=== PATIENT | male | born 1990 | race Caucasian/White ===

== ENCOUNTER 2021-01-23 11:29 | Outpatient (REF) | payer OTHER, SELFPAY | END 2021-01-23 11:30 | disposition home or self-care (01) | LOC: HO.LAB 11:29 | PROVIDERS: Visit Provider Internal Medicine | DX: Z20.822 Contact with and (suspected) exposure to COVID-19 (principal) | CPT/HCPCS: C9803; U0003; U0005 ==

== ENCOUNTER 2022-09-25 14:52 | Outpatient (AMB) | payer OTHER, SELFPAY ==
--- NOTE | 2022-09-25 14:59 | A.OFFPC_ITS ---
Vital Signs 09/25/22 15:00 Height 5 ft 8.5 in Weight 259 lb 2 oz BMI 38.8 BP 140/84 H Blood Pressure Location Lt brachial Position Standing Pulse 90 Pulse Source Pulse Oximeter Pulse Oximetry (%) 99 Oxygen Delivery Method Room Air Intake Visit Reasons: New patient-requesting physical Intake Note: Patient is here as a new pain with pain in left foot, rolled his ankle 2 weeks ago. Allergies sulfamethoxazole [From Bactrim] Adverse Reaction (Mild, Verified 09/25/22 15:04) Diarrhea trimethoprim [From Bactrim] Adverse Reaction (Mild, Verified 09/25/22 15:04) Diarrhea Tobacco use date assessed: 09/25/22 Dental Screening Dental Screen Date: 09/25/22 Did you have a dental visit in the last 12 months?: Yes Did you have a dental problem in the last 6 months where you did not have access to dental care?: No Was dental information given to patient?: Patient has dentist HPI New patient-requesting physical HPI Details New patient Prior PCP:?[facility]. Last office visit/CPE: 5-6 years ago. Acute issue(s): Elevated BP -BP today 140/84. He is not on any meds for his blood pressure. -Has been elevated before in the past. L foot/ankle pain -Rolled his ankle x2 weeks ago. PMHx: Elevated BP, GERD SurgHx: Ingrown nail w/ local. FHx: Father: Osteoporosis GF: DM, Lung CA. Mom: Depression. SocHx: Smoke 1.5 yrs at age 20. EtOH: Weekends 6-pack to 12-pack PFSH Medical History (Updated 09/25/22 @ 15:41 by Issac Penn) Hypertension Surgical History (Updated 09/25/22 @ 15:08 by Nita Boles CMA) No pertinent past surgical history Family History (Updated 09/25/22 @ 15:10 by Nita Boles CMA) Paternal Grandfather High blood pressure Diabetes Lung cancer Maternal Grandmother High blood pressure Heart attack Advanced dementia Social History (Updated 09/25/22 @ 15:12 by Nita Boles CMA) Household Members: Family Housing: House Patient Tobacco Use Status: Former Tobacco user e-Cigarette/Vaping Use: Never Used Special laila needs: No service: No Current occupational status: employed Current occupation: [employer] Cognitive needs: No Hearing needs: No Vision needs: No Questionnaire PHQ-9 Over the last 2 weeks, how often have you been bothered by any of the following problems? 1. Little interest or pleasure in doing things: not at all 2. Feeling down, depressed, or hopeless: not at all 3. Trouble falling or staying asleep, or sleeping too much: not at all 4. Feeling tired or having little energy: not at all 5. Poor appetite or overeating: not at all 6. Feeling bad about yourself - or that you are a failure or have let yourself or your family down: not at all 7. Trouble concentrating on things, such as reading the newspaper or watching television: not at all 8. Moving or speaking so slowly that other people could have noticed. Or the opposite - being so fidgety or restless that you have been moving around a lot more than usual: not at all 9. Thoughts that you would be better off or of hurting yourself in some way: not at all Total score: 0 Source: Developed by Drs. Edward Dunn, Bina Alcazar, Puma Condon and colleagues, with an educational arcadio from [employer]. Thrive Questionnaire I am a: Patient What is your living situation today?: I have a steady place to live Within the past 12 months, did the food you bought not last and you didn't have the money to get more?: Never true Within the past 12 months, did you worry whether your food would run out before you got money to buy more?: Never true Do you have trouble paying for medicines?: No Do you have trouble getting transportation to medical appointments?: No Do you have trouble paying your heating and electricity bill?: No Do you have trouble taking care of your child, family member or friend?: No Do you have trouble with day-to-day activities such as bathing, preparing meals, shopping, managing finances, etc.?: No Are you currently unemployed and looking for a job?: No Are you interested in more education?: No AUDIT C Alcohol Use Questionnaire (AUDIT-C) 1. How often do you have a drink containing alcohol?: 2-4 times a month 2. How many drinks containing alcohol do you have on a typical day when you are drinking?: 10 or more 3. How often do you have six or more drinks on one occasion?: Monthly Total Score: 8 MICHAEL-7 AMB Questionnaire MICHAEL-7 Date MICHAEL - 7 assessed: 09/25/22 Feeling nervous, anxious, or on edge: 0 = Not at all Not being able to stop or control worryin = Not at all Worrying too much about different things: 0 = Not at all Trouble relaxin = Not at all Being so restless that it is hard to sit still: 0 = Not at all Becoming easily annoyed or irritable: 0 = Not at all Feeling afraid as if something awful might happen: 0 = Not at all Total MICHAEL-7 score (0-4 normal; 5-9 mild; 10-14 moderate; 15-21 severe): 0 Source: Developed by Drs. Edward Dunn, Bina Alcazar, Puma Condon and colleagues, with an educational arcadio from [employer]. Review of Systems Const Denies chills, Denies fatigue, Denies fever(s), Denies headache(s) and Denies weakness ENT Denies dizziness and Denies headache(s) Card Denies chest pain, Denies lightheadedness, Denies dyspnea and Denies other (Palpitations) Resp Denies cough, Denies dyspnea, Denies wheezing and Denies other ( shortness of breath) Musc Denies numbness and Denies tingling Neuro Denies dizziness, Denies headache(s), Denies numbness, Denies tingling, Denies paresthesias and Denies weakness Psych Denies anxiety and Denies depression Endo Denies fatigue Aller/Immun Denies wheezing Physical exam (Primary Care) Vital Signs: Last Vital Signs Pulse 90 09/25/22 15:00 BP 140/84 H 09/25/22 15:00 Pulse Ox 99 09/25/22 15:00 Oxygen Delivery Method Room Air 09/25/22 15:00 BMI result Body Mass Index 38.8 Tobacco/Smoking Status: Tobacco use Status Tobacco use date assessed 09/25/22 09/25/22 15:13 Patient Tobacco Use Status Former Tobacco user 09/25/22 15:13 e-Cigarette/Vaping Use Never Used 09/25/22 15:13 PHQ-9: PHQ-9 Score PHQ-9: Total score 0 09/25/22 15:19 Const General: no acute distress and well developed Nutritional Appearance: well nourished Orientation/consciousness: patient oriented x3 HENMT Head: Yes normocephalic and Yes atraumatic Eyes General: appearance normal, both eyes and all related structures Pupils: Equal, round and reactive pupils present EOM: EOMs intact bilaterally Resp Effort & Inspection: normal respiratory effort Auscultation: clear to auscultation bilaterally Cardio Rate: regular rate Rhythm: regular rhythm Heart sounds: S1 normal heart sound present, S2 normal heart sound present, no gallops, no murmurs and no rubs Neuro General: patient oriented x3 and gait normal Cranial nerves: Yes Equal, round and reactive pupils present Extrem Other: Tenderness over L 5th metatarsal head Psych Affect: normal affect Assessment and Plan Assessment & Plan (1) Hypertension: Code(s): I10 - Essential (primary) hypertension Plan: Blood pressure is high and he has had elevated blood pressures in the past Start lisinopril Will follow-up at next visit to recheck blood pressures Encouraged diet exercise and weight loss (2) Left foot pain: Code(s): M79.672 - Pain in left foot Plan: Patient rolled foot and has pain at left 5th metatarsal head Likely sprain at with ongoing strain as he has been climbing ladders for work Will check an x-ray to rule out fracture at 5th metatarsal head Recommend relative rest and NSAIDs Recommend ice and elevation If not improving will consider physical therapy or Podiatry (3) GERD (gastroesophageal reflux disease): Code(s): K21.9 - Gastro-esophageal reflux disease without esophagitis Plan: History of GERD which he is able to control by controlling trigger foods Continue trigger food avoidance Can pre treat with OTC medications when needed He will let me know if this worsens (4) Laboratory exam ordered as part of routine general medical examination: Code(s): Z00.00 - Encounter for general adult medical examination without abnormal fin dings Plan: Check labs Orders: Orders Comprehensive [place]. Panel Fast Today Z00.00 - Encounter for general adult medical examination without abnormal findings Lipid Panel Today Z00.00 - Encounter for general adult medical examination without abnormal findings TSH reflex Free T4 Today Z00.00 - Encounter for general adult medical examination without abnormal findings Microalbumin, Random (w Creat) Today I10 - Essential (primary) hypertension Hepatitis B,C Profile Today Z11.3 - Encounter for screening for infections with a predominantly sexual mode of transmission HIV Ab/Ag Today Z11.3 - Encounter for screening for infections with a predominantly sexual mode of transmission Syphilis Screen Today Z11.3 - Encounter for screening for infections with a predominantly sexual mode of transmission UA and rflx microscopic Today Z00.00 - Encounter for general adult medical examination without abnormal findings CT NG by PCR Today Z11.3 - Encounter for screening for infections with a predominantly sexual mode of transmission XR foot LT min 3V Today M79.672 - Pain in left foot Medications: New lisinopril 10 mg PO DAILY 30 days 30 tabs 1RF meloxicam 15 mg PO DAILY 30 days 30 tabs 2RF Coding Level of Care Code New Pt Level 3 (13999) Diagnoses Hypertension I10 Left foot pain M79.672 GERD (gastroesophageal reflux disease) K21.9 Laboratory exam ordered as part of routine general medical examination Z00.00
[2022-09-25 15:00] VITALS: BP 140/84; PULSE 90; O2SAT 99; BMI 38.8
== END 2022-09-25 15:53 | disposition home or self-care (01) ==
PROVIDERS: Visit Provider Family Medicine
DX: I10 Essential (primary) hypertension (principal); M79.672 Pain in left foot; K21.9 Gastro-esophageal reflux disease without esophagitis; Z00.00 Encounter for general adult medical examination without abnormal findings
CPT/HCPCS: 99203

== ENCOUNTER 2022-09-26 15:42 | Outpatient (REF) | payer OTHER, SELFPAY ==
--- NOTE | ~2022-09-26 | XR_ITS ---
EXAMINATION: XR FOOT, LEFT CLINICAL INFORMATION: Pain. COMPARISON: None available. TECHNIQUE: AP, lateral, and oblique views of the left foot. FINDINGS: Bony alignment and mineralization are normal. No fracture, dislocation or left ankle joint effusion is seen. Boehler's angle is normal. There is a small posterior calcaneal spur. No focal soft tissue swelling, gas or foreign body is seen. XR/XR foot LT min 3V IMPRESSION: 1. No fracture, dislocation or left ankle joint effusion is seen. 2. There is a small posterior calcaneal spur
== END 2022-09-26 15:43 | disposition home or self-care (01) ==
LOC: HO.XRAY 15:42
PROVIDERS: PCP Family Medicine; Visit Provider Family Medicine
DX: M79.672 Pain in left foot (principal)
CPT/HCPCS: 73630

== ENCOUNTER 2022-12-15 08:40 | Outpatient (REF) | payer OTHER, SELFPAY ==
[2022-12-15 09:38] LABS: Alanine Aminotransferase 51 U/L (0-40); Albumin Level 4.5 g/dL (3.5-5.0); Alkaline Phosphatase 77 U/L (39-117); Anion Gap 13 (12-20); Aspartate Amino Transferase 22 U/L (5-37); Bilirubin Total 0.5 mg/dL (0.0-1.0); Blood Urea Nitrogen 14 mg/dL (9-16); Carbon Dioxide 28 mmol/L (22-29); Chloride 105 mmol/L (96-108); Cholesterol 237 mg/dL (<200); Estimated Glomerular Filt Rate > 60; Glucose Fasting 103 mg/dL (60-99); HDL Cholesterol 41 mg/dL (>40); LDL Cholesterol Calculated 164 mg/dL (<100); Potassium 4.6 mmol/L (3.3-5.1); Sodium 141 mmol/L (135-145); Total Protein 7.6 g/dL (6.5-8.0); Triglycerides 162 mg/dL (<150)
[2022-12-15 09:56] LABS: HBS Num1 8.01 mIU/mL (0-7.99); HBc Num1 0.07 S/CO (0.00-0.79); HBsAGNum1 0.45 S/CO (0.00-0.99); HIV AB/AG Nonreactive (Nonreactive); HIV Num 1 0.06 S/CO (0.00-0.99); Hepatitis B Core Antibody Nonreactive (Nonreactive); Hepatitis B Surface Antigen Negative (Negative); Syphilis Screen Nonreactive (Nonreactive); ~HepC Num1 0.04 S/CO (0.00-0.79); ~Hepatitis C Antibody Nonreactive (Nonreactive)
[2022-12-15 10:25] LABS: Appearance Urine Clear; Color Urine Yellow; Glucose Urine UA Negative (Negative); Leukocyte Esterase Urine Negative (Negative); Nitrite Urine Negative (Negative); PH 6.5 (5.0-9.0); Urine Blood Negative (Negative); Urine Ketones Negative (Negative); Urine Protein Negative (Neg-Trace)
[2022-12-15 10:28] LABS: TSH reflex Free T4 1.33 uIU/mL (0.32-4.0)
[2022-12-15 11:10] LABS: Creatinine Urine 56.02 mg/dL; Microalbumin Urine < 5.0 mg/L
[2022-12-16 06:24] LABS: HBS Num2 8.33 mIU/mL (0-7.99); ~Hepatitis B Surface Antibody GRAYZONE (Nonreactive)
== END 2022-12-15 08:41 | disposition home or self-care (01) ==
LOC: HO.LAB 08:40
PROVIDERS: PCP Family Medicine; Visit Provider Family Medicine
DX: Z00.00 Encounter for general adult medical examination without abnormal findings (principal); I10 Essential (primary) hypertension; Z11.3 Encounter for screening for infections with a predominantly sexual mode of transmission
CPT/HCPCS: 36415; 80053; 80061; 81003; 82043; 82570; 84443; 86704; 86706; 86780; 86803; 87340; 87389

== ENCOUNTER 2023-01-07 15:54 | Outpatient (AMB) | payer OTHER, SELFPAY ==
[2023-01-07 16:18] VITALS: BP 120/74; PULSE 78; O2SAT 98; BMI 39.9
--- NOTE | 2023-01-07 16:18 | A.OFFPC_ITS ---
Vital Signs 01/07/23 16:18 Height 5 ft 8.5 in Weight 266 lb BMI 39.9 BP 120/74 Blood Pressure Location Lt brachial Position Sitting Pulse 78 Pulse Source Pulse Oximeter Pulse Oximetry (%) 98 Oxygen Delivery Method Room Air Intake Visit Reasons: CPE Intake Note: Patient is here for his physical. Allergies sulfamethoxazole [From Bactrim] Adverse Reaction (Mild, Verified 01/07/23 16:23) Diarrhea trimethoprim [From Bactrim] Adverse Reaction (Mild, Verified 01/07/23 16:23) Diarrhea Tobacco use date assessed: 01/07/23 HPI CPE HPI Details 32 y/o male presents for a CPE with f/u labs and health maintenance. Labs were drawn 12/15/22. Reviewed labs with pt. Elevated fasting glucose of 103. AST 22. Elevated ALT of 51. Triglycerides 162. TC 237. LDL 164. HDL 41. Pt reports he drinks a 6-pack on the weekends. PFSH Medical History Hypertension Surgical History No pertinent past surgical history Family History Paternal Grandfather High blood pressure Diabetes Lung cancer Maternal Grandmother High blood pressure Heart attack Advanced dementia Social History Household Members: Family Housing: House Patient Tobacco Use Status: Former Tobacco user e-Cigarette/Vaping Use: Never Used Special laila needs: No service: No Current occupational status: employed Current occupation: interior painting Cognitive needs: No Hearing needs: No Vision needs: No Questionnaire MICHAEL-7 AMB Questionnaire MICHAEL-7 Date MICHAEL - 7 assessed: 09/25/22 Source: Developed by Drs. Edward Dunn, Bina Alcazar, Puma Condon and colleagues, with an educational arcadio from [employer]. Review of Systems Const Denies chills, Denies fatigue, Denies fever(s), Denies headache(s) and Denies weakness Eyes Denies change in vision ENT Denies dizziness, Denies headache(s), Denies hearing loss, Denies nasal congestion, Denies sinus pain, Denies sinus pressure and Denies sore throat Card Denies chest pain, Denies lightheadedness, Denies dyspnea and Denies other (palpitations) Resp Denies cough, Denies dyspnea and Denies wheezing GI Denies abdominal pain, Denies melena, Denies hematochezia, Denies change in bowel habits, Denies dyspepsia and Denies nausea Denies hematuria and Denies dysuria Musc Denies abnormal gait, Denies myalgias, Denies arthralgias, Denies numbness and Denies tingling Skin/Breast Denies rash, Denies unusual bruising and Denies wounds Neuro Denies abnormal gait, Denies dizziness, Denies headache(s), Denies memory loss, Denies numbness, Denies Sensory deficit (Neuro), Denies tingling and Denies weakness Psych Denies anxiety, Denies depression and Denies memory loss Endo Denies cold intolerance, Denies fatigue, Denies heat intolerance, Denies polyd ipsia and Denies polyuria Matt/Lymph Denies easy bleeding and Denies easy bruising Aller/Immun Denies wheezing Physical exam (Primary Care) Vital Signs: Last Vital Signs Pulse 78 01/07/23 16:18 BP 120/74 01/07/23 16:18 Pulse Ox 98 01/07/23 16:18 Oxygen Delivery Method Room Air 01/07/23 16:18 BMI result Body Mass Index 39.9 Tobacco/Smoking Status: Tobacco use Status Tobacco use date assessed 01/07/23 01/07/23 16:25 Patient Tobacco Use Status Former Tobacco user 01/07/23 16:25 e-Cigarette/Vaping Use Never Used 01/07/23 16:25 Const General: no acute distress, well developed, alert and awake Nutritional Appearance: well nourished Orientation/consciousness: patient oriented x3 HENMT Head: Yes normocephalic and Yes atraumatic Ears: hearing grossly normal bilaterally and TM's normal bilaterally General nose exam: Normal external nose present and Normal nares present Mouth: Normal oral and palatal mucosa present and moist mucous membranes Teeth and gingiva: dentition normal Throat: Yes posterior oropharynx normal Eyes General: appearance normal, both eyes and all related structures Pupils: Equal, round and reactive pupils present and Pupil accommodation reflex normal EOM: EOMs intact bilaterally Neck Neck: Yes normal visual inspection, Yes no lymphadenopathy and Yes trachea midline Thyroid: Thyroid normal Carotids: no bruits Lymphatic: no lymphadenopathy noted Chest Chest palpation & inspection: normal inspection of the chest Resp Effort & Inspection: normal respiratory effort Auscultation: clear to auscultation bilaterally Cardio Rate: regular rate Rhythm: regular rhythm Heart sounds: S1 normal heart sound present, S2 normal heart sound present, no gallops, no murmurs and no rubs Bruits: no abdominal aortic bruits and no carotid bruits GI Palpation (GI): No Abdominal aortic bruit present, Soft to palpation, nontender, No hepatosplenomegaly present and No Rebound tenderness present Auscultation: normal bowel sounds General: Yes no CVA tenderness Back/Spine/Pelvis Back: no CVA tenderness Cervical Spine: cervical ROM normal and No Cervical spine tenderness Thoracic/Lumbar Spine: thoraco-lumbar ROM normal, No pain with thoraco-lumbar ROM, No thoracic spinal tenderness and No lumbar spinal tenderness Skin Lesions: no lesions Rashes: no rashes Trauma: no lacerations or abrasions Wounds: no wounds Nails: normal Neuro General: patient oriented x3 Cranial nerves: Yes Equal, round and reactive pupils present Cognition (Neuro): normal cognition Gait exam (Neuro): Normal gait present Motor exam (neuro): 5/5 motor strength present throughout Sensory Exam: No Sensory deficit (Neuro) Deep tendon reflexes (DTR's): Right patellar reflex intensity grade: 2+ and Left patellar reflex intensity grade: 2+ Extrem General: Yes normal to inspection and No edema Psych Appearance: grossly normal Affect: normal affect Attitude: cooperative Thought process: Normal thought process present Assessment and Plan Assessment & Plan (1) Adult general medical exam: Code(s): Z00.00 - Encounter for general adult medical examination without abnormal findings Plan: 32-year-old?male?presents?for?complete?physical?exam Encouraged?healthy?diet?with?active?lifestyle?and?plenty?of?exercise (2) Hypercholesterolemia: Code(s): E78.00 - Pure hypercholesterolemia, unspecified Plan: TC?and?LDL?are?significantly?elevated. He?will?work?on?lifestyle?shannon nges?including?a?diet?low?in?saturated?fats?and?cholesterol.??He?will?work?at?we ight?loss. Also?drinking?up?to?a?6?pack?on?weekends?and?I?advised?him?to?decrease?this?to?n ot?more?than?2?drinks?per?day (3) Elevated fasting glucose: Code(s): R73.01 - Impaired fasting glucose Plan: Fasting?blood?sugar?was?mildly?elevated?at?103 Likely?some?insulin?resistance?and?I?encouraged?a?diet?lower?in?sugars?and?starc hes.??Also?advised?weight?loss?and?exercise (4) Elevated ALT measurement: Code(s): R74.01 - Elevation of levels of liver transaminase levels Plan: Elevated?ALT As?above,?advised?decreasing?alcohol?intake Advised?weight?loss Will?recheck?this.??If?liver?enzymes?are?still?the?same?or?higher,?will?check?li herminio?ultrasound. Orders: Orders Comprehensive [place]. Panel Fast Today R74.01 - Elevation of levels of liver transaminase levels, Z00.00 - Encounter for general adult medical examination without abnormal findings Lipid Panel Today E78.00 - Pure hypercholesterolemia, unspecified, Z00.00 - Encounter for general adult medical examination without abnormal findings Hepatitis B,C Profile Today Z11.3 - Encounter for screening for infections with a predominantly sexual mode of transmission Hemoglobin A1c Today R73.01 - Impaired fasting glucose Coding Level of Care Code Est Pt Level 3 (01045) Est Pt Prev Care 18-39y(19177) Diagnoses Adult general medical exam Z00.00 Hypercholesterolemia E78.00 Elevated fasting glucose R73.01 Elevated ALT measurement R74.01
== END 2023-01-07 17:32 | disposition home or self-care (01) ==
PROVIDERS: PCP Family Medicine; Visit Provider Family Medicine
DX: Z00.00 Encounter for general adult medical examination without abnormal findings (principal); E78.00 Pure hypercholesterolemia, unspecified; R73.01 Impaired fasting glucose; R74.01 Elevation of levels of liver transaminase levels
CPT/HCPCS: 99212; 99395

== ENCOUNTER 2023-03-31 15:30 | Outpatient (REF) | payer OTHER, SELFPAY ==
[2023-03-31 16:18] LABS: Estimated Average Glucose 91 mg/dL; Hemoglobin A1c % 4.8 % (<6.0)
[2023-03-31 16:27] LABS: Alanine Aminotransferase 34 U/L (0-40); Albumin Level 4.8 g/dL (3.5-5.0); Alkaline Phosphatase 70 U/L (39-117); Anion Gap 15 (12-20); Aspartate Amino Transferase 19 U/L (5-37); Bilirubin Total 0.7 mg/dL (0.0-1.0); Blood Urea Nitrogen 15 mg/dL (9-16); Carbon Dioxide 28 mmol/L (22-29); Chloride 105 mmol/L (96-108); Cholesterol 198 mg/dL (<200); Estimated Glomerular Filt Rate > 60; Glucose Fasting 82 mg/dL (60-99); HDL Cholesterol 36 mg/dL (>40); LDL Cholesterol Calculated 133 mg/dL (<100); Sodium 144 mmol/L (135-145); Triglycerides 146 mg/dL (<150)
[2023-04-01 02:38] LABS: HBS Num1 9.52 mIU/mL (0-7.99); HBc Num1 0.07 S/CO (0.00-0.79); HBsAGNum1 0.33 S/CO (0.00-0.99); Hepatitis B Core Antibody Nonreactive (Nonreactive); Hepatitis B Surface Antigen Negative (Negative); ~HepC Num1 0.07 S/CO (0.00-0.79); ~Hepatitis C Antibody Nonreactive (Nonreactive)
[2023-04-01 03:34] LABS: HBS Num2 9.36 mIU/mL (0-7.99); HBS Num3 9.23 mIU/mL (0-7.99); ~Hepatitis B Surface Antibody GRAYZONE (Nonreactive)
== END 2023-03-31 15:31 | disposition home or self-care (01) ==
LOC: HO.LAB 15:30
PROVIDERS: PCP Family Medicine; Visit Provider Family Medicine
DX: Z00.00 Encounter for general adult medical examination without abnormal findings (principal); Z11.3 Encounter for screening for infections with a predominantly sexual mode of transmission; R74.01 Elevation of levels of liver transaminase levels; E78.00 Pure hypercholesterolemia, unspecified; R73.01 Impaired fasting glucose
CPT/HCPCS: 36415; 80053; 80061; 83036; 86704; 86706; 86803; 87340

== ENCOUNTER 2023-04-14 16:19 | Outpatient (AMB) | payer OTHER, SELFPAY ==
--- NOTE | 2023-04-14 16:34 | MHC.PC.OV ---
Vital Signs 04/14/23 16:38 Height 5 ft 8.5 in Weight 265 lb BMI 39.7 BP 128/82 Blood Pressure Location Lt brachial Position Sitting Pulse 75 Pulse Source Pulse Oximeter Pulse Oximetry (%) 98 Oxygen Delivery Method Room Air Intake Visit Reasons: Hyperlipidemia,?elevated FBS,?elev?liver?enzymes Intake Note: Patient is here to follow up on blood work. Allergies sulfamethoxazole [From Bactrim] Adverse Reaction (Mild, Verified 04/14/23 16:41) Diarrhea trimethoprim [From Bactrim] Adverse Reaction (Mild, Verified 04/14/23 16:41) Diarrhea Tobacco use date assessed: 04/14/23 HPI Hyperlipidemia,?elevated FBS,?elev?liver?enzymes HPI Details 32 y/o male presents to f/u hyperlipidemia, elevated FBS, elevated liver enzymes. Labs were drawn 03/31/23. Reviewed labs with pt. Triglycerides 146. TC 198. LDL 133, improved from 164. HDL low at 36. A1c 4.8%. Liver enzymes improved - ALT from 51 to 34. Blood pressure today 128/82. He is on lisinopril 10mg daily. [facility] Medical History Hypertension Surgical History No pertinent past surgical history Family History Paternal Grandfather High blood pressure Diabetes Lung cancer Maternal Grandmother High blood pressure Heart attack Advanced dementia Social History Household Members: Family Housing: House Patient Tobacco Use Status: Former Tobacco user e-Cigarette/Vaping Use: Never Used Special laila needs: No service: No Current occupational status: employed Current occupation: interior painting Cognitive needs: No Hearing needs: No Vision needs: No Questionnaire MICHAEL-7 AMB Questionnaire MICHAEL-7 Date MICHAEL - 7 assessed: 09/25/22 Source: Developed by Drs. Edward Dunn, Bina Alcazar, Puma Condon and colleagues, with an educational arcadio from [employer]. Review of Systems Const Denies chills, Denies fatigue, Denies fever(s), Denies headache(s) and Denies weakness ENT Denies dizziness and Denies headache(s) Card Denies dyspnea Resp Denies cough, Denies dyspnea, Denies wheezing and Denies other (shortness of breath) Musc Denies numbness and Denies tingling Neuro Denies dizziness, Denies headache(s), Denies numbness, Denies tingling and Denies weakness Psych Denies anxiety and Denies depression Endo Denies fatigue Aller/Immun Denies wheezing Physical exam (Primary Care) Vital Signs: Last Vital Signs Pulse 75 04/14/23 16:38 BP 128/82 04/14/23 16:38 Pulse Ox 98 04/14/23 16:38 Oxygen Delivery Method Room Air 04/14/23 16:38 BMI result Body Mass Index 39.7 Tobacco/Smoking Status: Tobacco use Status Tobacco use date assessed 04/14/23 04/14/23 16:44 Patient Tobacco Use Status Former Tobacco user 04/14/23 16:35 e-Cigarette/Vaping Use Never Used 04/14/23 16:35 Const General: well developed; No acute distress Nutritional Appearance: well nourished and obese Orientation/consciousness: patient oriented x3 [facility]: Yes normocephalic and Yes atraumatic Eyes General: appearance normal, both eyes and all related structures Pupils: Equal, round and reactive pupils present EOM: EOMs intact bilaterally Resp Effort & Inspection: normal respiratory effort Auscultation: clear to auscultation bilaterally Cardio Rate: regular rate Rhythm: regular rhythm Heart sounds: S1 normal heart sound present, S2 normal heart sound present, no gallops, no murmurs and no rubs Neuro General: patient oriented x3 and gait normal Cranial nerves: Yes Equal, round and reactive pupils present Psych Affect: normal affect Assessment and Plan Assessment & Plan (1) Elevated fasting glucose: Code(s): R73.01 - Impaired fasting glucose Plan: Fasting?blood?sugars?now?in?normal?range?and?his?A1c?is?within?normal?range?as?well. He?has?been?making?dietary?changes?and?I?encouraged?him?to?continue?this?as?well?as?work?on?weight?loss?and?exercise. (2) Hypercholesterolemia: Code(s): E78.00 - Pure hypercholesterolemia, unspecified Plan: Lipids?much?improved?with?dietary?changes. Continue?working?at?dietary?changes?and?weight?loss Encouraged?exercise (3) Elevated ALT measurement: Code(s): R74.01 - Elevation of levels of liver transaminase levels Plan: This?has?resolved Encouraged?good?hydration?and?exercise?and?weight?loss. (4) Hypertension: Code(s): I10 - Essential (primary) hypertension Plan: Blood?pressure?is?controlled.??Goal?is?less?than?140/90 Continue?current?medication Continue?weight?loss?and?exercise (5) Low HDL (under 40): Code(s): E78.6 - Lipoprotein deficiency Plan: HDL?decreased?with?his?dietary?changes?which?lowered?his?cholesterol?levels?overall. Encouraged?exercise Orders: Orders Lipid Panel Today E78.00 - Pure hypercholesterolemia, unspecified, Z00.00 - Encounter for general adult medical examination without abnormal findings Comprehensive [place]. Panel Fast Today E78.00 - Pure hypercholesterolemia, unspecified, Z00.00 - Encounter for general adult medical examination without abnormal findings Microalbumin, Random (w Creat) Today I10 - Essential (primary) hypertension Coding Level of Care Code Est Pt Level 4 (94391) Diagnoses Elevated fasting glucose R73.01 Hypercholesterolemia E78.00 Elevated ALT measurement R74.01 Hypertension I10 Low HDL (under 40) E78.6
[2023-04-14 16:38] VITALS: BP 128/82; PULSE 75; O2SAT 98; BMI 39.7
== END 2023-04-14 17:00 ==
PROVIDERS: PCP Family Medicine; Visit Provider Family Medicine
DX: R73.01 Impaired fasting glucose (principal); E78.00 Pure hypercholesterolemia, unspecified; R74.01 Elevation of levels of liver transaminase levels; I10 Essential (primary) hypertension; E78.6 Lipoprotein deficiency
CPT/HCPCS: 99214

== ENCOUNTER 2023-12-02 07:37 | Outpatient (REF) | payer OTHER, SELFPAY ==
[2023-12-02 09:12] LABS: Alanine Aminotransferase 48 U/L (0-40); Albumin Level 4.7 g/dL (3.5-5.0); Alkaline Phosphatase 74 U/L (39-117); Anion Gap 13 (12-20); Aspartate Amino Transferase 28 U/L (5-37); Bilirubin Total 1.1 mg/dL (0.0-1.0); Blood Urea Nitrogen 17 mg/dL (9-16); Calcium 10.2 mg/dL (8.4-10.2); Carbon Dioxide 28 mmol/L (22-29); Chloride 105 mmol/L (96-108); Cholesterol 221 mg/dL (<200); Estimated Glomerular Filt Rate > 60; Glucose Fasting 94 mg/dL (60-99); HDL Cholesterol 40 mg/dL (>40); LDL Cholesterol Calculated 157 mg/dL (<100); Potassium 4.3 mmol/L (3.3-5.1); Sodium 142 mmol/L (135-145); Total Protein 7.8 g/dL (6.5-8.0); Triglycerides 122 mg/dL (<150)
[2023-12-02 09:47] LABS: Creatinine Urine 295.87 mg/dL; Microalbum/Creatinine Ratio Ur 5.4 ug/mg cr (<30)
== END 2023-12-02 07:38 | disposition home or self-care (01) ==
LOC: HO.LAB 07:37
PROVIDERS: PCP Family Medicine; Visit Provider Family Medicine
DX: Z00.00 Encounter for general adult medical examination without abnormal findings (principal); I10 Essential (primary) hypertension; E78.00 Pure hypercholesterolemia, unspecified
CPT/HCPCS: 36415; 80053; 80061; 82043; 82570

== ENCOUNTER 2023-12-11 08:42 | Outpatient (AMB) | payer OTHER, SELFPAY ==
[2023-12-11 08:46] VITALS: BP 127/60; PULSE 83; RESP 16; TEMP 36.2; O2SAT 99; BMI 39.0
--- NOTE | 2023-12-11 08:46 | MHC.PC.OV ---
Vital Signs 12/11/23 08:46 Height 5 ft 8.5 in Weight 260 lb BMI 39.0 BP 127/60 Blood Pressure Location Lt brachial Position Sitting Respiration 16 Pulse 83 Pulse Source Pulse Oximeter Temp 97.2 F Temp Source Temporal Artery Scan Pulse Oximetry (%) 99 Oxygen Delivery Method Room Air Intake Visit Reasons: 6m f/u hypertension Intake Note: 6 month HTN f/u Allergies sulfamethoxazole [From Bactrim] Adverse Reaction (Mild, Verified 12/11/23 08:46) Diarrhea trimethoprim [From Bactrim] Adverse Reaction (Mild, Verified 12/11/23 08:46) Diarrhea Medication List - Last Reconciled 12/11/23 by Andry Mijares MD atorvastatin 20 mg PO BEDTIME 90 days lisinopril 10 mg PO DAILY 30 days Tobacco use date assessed: 04/14/23 Dental Screening Dental Screen Date: 09/25/22 HPI 6m f/u hypertension HPI Details 33 y/o male presents to f/u hypertension. Blood pressure today 127/60, 83p. He is on lisinopril 10mg daily. Labs drawn 12/02/23. Reviewed labs with pt. Triglycerides 122. TC 221. LDL 157. HDL 40. Elevated ALT of 48. HPI Comments History of Present Illness Details Documentation assistance for Andry Mijares MD, was provided by Issac Penn, Gang Punch Operator on 12/11/2023 at 9:28 AM TAB. I, Dr. Mijares, have read, observed, and verified documentation. [facility] Medical History Hypertension Surgical History No pertinent past surgical history Family History Paternal Grandfather High blood pressure Diabetes Lung cancer Maternal Grandmother High blood pressure Heart attack Advanced dementia Social History Household Members: Family Housing: House Patient Tobacco Use Status: Former Tobacco user e-Cigarette/Vaping Use: Never Used Special laila needs: No service: No Current occupational status: employed Current occupation: interior painting Cognitive needs: No Hearing needs: No Vision needs: No Questionnaire PHQ-9 Over the last 2 weeks, how often have you been bothered by any of the following problems? 1. Little interest or pleasure in doing things: not at all 2. Feeling down, depressed, or hopeless: not at all 3. Trouble falling or staying asleep, or sleeping too much: not at all 4. Feeling tired or having little energy: not at all 5. Poor appetite or overeating: not at all 6. Feeling bad about yourself - or that you are a failure or have let yourself or your family down: not at all 7. Trouble concentrating on things, such as reading the newspaper or watching television: not at all 8. Moving or speaking so slowly that other people could have noticed. Or the opposite - being so fidgety or restless that you have been moving around a lot more than usual: not at all 9. Thoughts that you would be better off or of hurting yourself in some way: not at all Total score: 0 Source: Developed by Drs. Edward Dunn, Bina Alcazar, Puma Condon and colleagues, with an educational arcadio from [employer]. Thrive Questionnaire I am a: Patient What is your living situation today?: I have a steady place to live Within the past 12 months, did the food you bought not last and you didn't have the money to get more?: Never true Within the past 12 months, did you worry whether your food would run out before you got money to buy more?: Never true Do you have trouble paying for medicines?: No Do you have trouble getting transportation to medical appointments?: No Do you have trouble paying your heating and electricity bill?: No Do you have trouble taking care of your child, family member or friend?: No Do you have trouble with day-to-day activities such as bathing, preparing meals, shopping, managing finances, etc.?: No Are you currently unemployed and looking for a job?: No Are you interested in more education?: No Please select the resources that you would like help with: None Currently or been in a relationship where the following occur: No concerns reported THRIVE Score: 0 AUDIT C Alcohol Use Questionnaire (AUDIT-C) 1. How often do you have a drink containing alcohol?: 2-4 times a month 2. How many drinks containing alcohol do you have on a typical day when you are drinking?: 3 or 4 3. How often do you have six or more drinks on one occasion?: Less than monthly Total Score: 4 MICHAEL-7 AMB Questionnaire MICHAEL-7 Date MICHAEL - 7 assessed: 09/25/22 Feeling nervous, anxious, or on edge: 0 = Not at all Not being able to stop or control worryin = Not at all Worrying too much about different things: 0 = Not at all Trouble relaxin = Not at all Being so restless that it is hard to sit still: 0 = Not at all Becoming easily annoyed or irritable: 0 = Not at all Feeling afraid as if something awful might happen: 0 = Not at all Total MICHAEL-7 score (0-4 normal; 5-9 mild; 10-14 moderate; 15-21 severe): 0 Source: Developed by Drs. Edward Dunn, Bina Alcazar, Puma Condon and colleagues, with an educational arcadio from [employer]. Review of Systems Const Denies chills, Denies fatigue, Denies fever(s), Denies headache(s) and Denies weakness ENT Denies dizziness and Denies headache(s) Card Denies dyspnea Resp Denies cough, Denies dyspnea, Denies wheezing and Denies other (shortness of breath) Musc Denies numbness and Denies tingling Neuro Denies dizziness, Denies headache(s), Denies numbness, Denies tingling and Denies weakness Psych Denies anxiety and Denies depression Endo Denies fatigue Aller/Immun Denies wheezing Physical exam (Primary Care) Vital Signs: Last Vital Signs Temp 97.2 F 12/11/23 08:46 Pulse 83 12/11/23 08:46 Resp 16 12/11/23 08:46 BP 127/60 12/11/23 08:46 Pulse Ox 99 12/11/23 08:46 Oxygen Delivery Method Room Air 12/11/23 08:46 BMI result Body Mass Index 39.0 Tobacco/Smoking Status: Tobacco use Status Tobacco use date assessed 04/14/23 12/11/23 08:49 Patient Tobacco Use Status Former Tobacco user 12/11/23 08:49 e-Cigarette/Vaping Use Never Used 11/01/24 08:49 PHQ-9: PHQ-9 Score PHQ-9: Total score 0 12/11/23 09:26 Currently or been in a relationship where the following occur: No concerns reported Const General: well developed; No acute distress Nutritional Appearance: well nourished Orientation/consciousness: patient oriented x3 HENMT Head: Yes normocephalic and Yes atraumatic Eyes General: appearance normal, both eyes and all related structures Pupils: Equal, round and reactive pupils present EOM: EOMs intact bilaterally Resp Effort & Inspection: normal respiratory effort Auscultation: clear to auscultation bilaterally Cardio Rate: regular rate Rhythm: regular rhythm Heart sounds: S1 normal heart sound present, S2 normal heart sound present, no gallops, no murmurs and no rubs Neuro General: patient oriented x3 and gait normal Cranial nerves: Yes Equal, round and reactive pupils present Psych Affect: normal affect Coding Level of Care Code Est Pt Level 3 (56258) Diagnoses Hypertension I10 Hypercholesterolemia E78.00 Elevated ALT measurement R74.01 Assessment & Plan Assessment & Plan (1) Hypertension: Code(s): I10 - Essential (primary) hypertension Category: Medical Plan: Blood?pressure?is?well?controlled.??Goal?is?less?than?140/90 Continue?current?medication (2) Hypercholesterolemia: Code(s): E78.00 - Pure hypercholesterolemia, unspecified Category: Medical Plan: LDL?cholesterol?is?still?too?high Start?atorvastatin?20?mg?daily Encouraged?lifestyle?changes (3) Elevated ALT measurement: Code(s): R74.01 - Elevation of levels of liver transaminase levels Category: Medical Plan: Mildly?elevated?ALT. Will?continue?to?monitor?this. Encouraged?weight?loss Orders: Orders Lipid Panel Today E78.00 - Pure hypercholesterolemia, unspecified, Z00.00 - Encounter for general adult medical examination without abnormal findings Comprehensive Mcd[facility]ough. Panel Fast Today E78.00 - Pure hypercholesterolemia, unspecified, Z00.00 - Encounter for general adult medical examination without abnormal findings Medications: New atorvastatin 20 mg PO BEDTIME 90 days 90 tabs 2RF
== END 2023-12-11 09:40 | disposition home or self-care (01) ==
LOC: HO.HMCFM 08:43
PROVIDERS: PCP Family Medicine; Visit Provider Family Medicine
DX: I10 Essential (primary) hypertension (principal); E78.00 Pure hypercholesterolemia, unspecified; R74.01 Elevation of levels of liver transaminase levels

== ENCOUNTER → 2023-12-11 08:42 | Outpatient (BNVA) | payer OTHER, SELFPAY | PROVIDERS: PCP Family Medicine; Visit Provider Family Medicine | DX: I10 Essential (primary) hypertension (principal); E78.00 Pure hypercholesterolemia, unspecified; R74.01 Elevation of levels of liver transaminase levels | CPT/HCPCS: 96127; 99212 ==

== ENCOUNTER 2024-07-12 15:35 | Outpatient (AMB) | payer OTHER, SELFPAY ==
--- NOTE | 2024-07-12 15:37 | A.OFFPC_ITS ---
Vital Signs 07/12/24 15:43 Height 5 ft 8.5 in Weight 257 lb 2 oz BMI 38.5 BP 127/65 Blood Pressure Location Lt brachial Position Sitting Respiration 16 Pulse 73 Pulse Source Pulse Oximeter Temp 98.2 F Temp Source Oral Pulse Oximetry (%) 98 Oxygen Delivery Method Room Air Intake Visit Reasons: headaches Intake Note: patient here c/o headaches on and off for a week Hog Worker Required: No Allergies sulfamethoxazole [From Bactrim] Adverse Reaction (Mild, Verified 07/12/24 16:03) Diarrhea trimethoprim [From Bactrim] Adverse Reaction (Mild, Verified 07/12/24 16:03) Diarrhea Medication List - Last Reconciled 07/12/24 by Nick Chen CNP atorvastatin 20 mg PO BEDTIME 90 days lisinopril 10 mg PO DAILY 30 days Tobacco use date assessed: 07/12/24 Dental Screening Dental Screen Date: 07/12/24 Did you have a dental visit in the last 12 months?: Yes Did you have a dental problem in the last 6 months where you did not have access to dental care?: No Was dental information given to patient?: Patient has dentist HPI HPI Comments History of Present Illness Details 34-year-old male presents with complaint s of headaches. He notes that he experienced significant headache for 6 days consecutive last week. He reports associated brain fog. He denies visual disturbances, dizziness, or other symptoms. He denies excessive caffeine intake. He has not experienced symptoms the last 2 days. He did not take any medication for his symptoms. No acute symptoms at this time. He usually follows Dr. Mijares. [facility] Medical History Hypertension Surgical History No pertinent past surgical history Family History Paternal Grandfather High blood pressure Diabetes Lung cancer Maternal Grandmother High blood pressure Heart attack Advanced dementia Social History Household Members: Family Housing: House Patient Tobacco Use Status: Former Tobacco user e-Cigarette/Vaping Use: Never Used Special laila needs: No service: No Current occupational status: employed Current occupation: interior painting Cognitive needs: No Hearing needs: No Vision needs: No Questionnaire PHQ-9 Over the last 2 weeks, how often have you been bothered by any of the following problems? 1. Little interest or pleasure in doing things: several days 2. Feeling down, depressed, or hopeless: not at all 3. Trouble falling or staying asleep, or sleeping too much: not at all 4. Feeling tired or having little energy: several days 5. Poor appetite or overeating: several days 6. Feeling bad about yourself - or that you are a failure or have let yourself or your family down: not at all 7. Trouble concentrating on things, such as reading the newspaper or watching television: several days 8. Moving or speaking so slowly that other people could have noticed. Or the opposite - being so fidgety or restless that you have been moving around a lot more than usual: not at all 9. Thoughts that you would be better off or of hurting yourself in some way: not at all Total score: 4 Depression Screening Interpretation: Negative Depression Screening Done: Yes Source: Developed by Drs. Edward Dunn, Bina Alcazar, Puma Condon and colleagues, with an educational arcadio from [facility]. Thrive Questionnaire I am a: Patient What is your living situation today?: I have a steady place to live Within the past 12 months, did the food you bought not last and you didn't have the money to get more?: Never true Within the past 12 months, did you worry whether your food would run out before you got money to buy more?: Never true Do you have trouble paying for medicines?: No Do you have trouble getting transportation to medical appointments?: No Do you have trouble paying your heating and electricity bill?: No Do you have trouble taking care of your child, family member or friend?: No Do you have trouble with day-to-day activities such as bathing, preparing meals, shopping, managing finances, etc.?: No Are you currently unemployed and looking for a job?: No Are you interested in more education?: No Please select the resources that you would like help with: None Currently or been in a relationship where the following occur: No concerns reported THRIVE Score: 0 AUDIT C Alcohol Use Questionnaire (AUDIT-C) 1. How often do you have a drink containing alcohol?: 2-4 times a month 2. How many drinks containing alcohol do you have on a typical day when you are drinking?: 3 or 4 3. How often do you have six or more drinks on one occasion?: Less than monthly Total Score: 4 Score Reviewed/Action Taken: Yes MICHAEL-7 AMB Questionnaire MICHAEL-7 Date MICHAEL - 7 assessed: 09/25/22 Feeling nervous, anxious, or on edge: 1 = Several days Not being able to stop or control worryin = Not at all Worrying too much about different things: 0 = Not at all Trouble relaxin = Not at all Being so restless that it is hard to sit still: 0 = Not at all Becoming easily annoyed or irritable: 0 = Not at all Feeling afraid as if something awful might happen: 0 = Not at all Total MICHAEL-7 score (0-4 normal; 5-9 mild; 10-14 moderate; 15-21 severe): 1 Source: Developed by Drs. Edward Dunn, Bina Alcazar, Puma Condon and colleagues, with an educational arcadio from [facility]. Review of Systems Const Details: Const Denies chills, Denies fatigue, Denies fever(s),and Denies weakness ENT Reports as per HPI Card Denies chest pain, Denies lightheadedness, Denies dyspnea and Denies other (Palpitations) Resp Denies cough, Denies dyspnea, Denies wheezing and Denies other ( shortness of breath) GI Denies abdominal pain, Denies melena, Denies hematochezia, Denies change in bowel habits, Denies dyspepsia and Denies nausea Denies hematuria and Denies dysuria Musc Denies abnormal gait, Denies myalgias, Denies arthralgias, Denies numbness and Denies tingling Skin/Breast Denies rash, Denies unusual bruising and Denies wounds Neuro Denies abnormal gait, Denies dizziness, Denies memory loss, Denies numbness, Denies Sensory deficit (Neuro), Denies tingling and Denies weakness Psych Denies anxiety, Denies depression, Denies memory loss Endo Denies cold intolerance, Denies fatigue, Denies heat intolerance, Denies polydipsia and Denies polyuria Aller/Immun Denies wheezing Physical exam (Primary Care) Vital Signs: Last Vital Signs Temp 98.2 F 07/12/24 15:43 Pulse 73 07/12/24 15:43 Resp 16 07/12/24 15:43 BP 127/65 07/12/24 15:43 Pulse Ox 98 07/12/24 15:43 Oxygen Delivery Method Room Air 07/12/24 15:43 BMI result Body Mass Index 38.5 Tobacco/Smoking Status: Tobacco use Status Tobacco use date assessed 07/12/24 07/12/24 15:43 Patient Tobacco Use Status Former Tobacco user 07/12/24 15:43 e-Cigarette/Vaping Use Never Used 07/12/24 15:43 PHQ-9: PHQ-9 Score PHQ-9: Total score 4 07/12/24 15:43 Depression Screening Interpretation: Negative Currently or been in a relationship where the following occur: No concerns reported Const Other: General: no acute distress and well developed Nutritional Appearance: well nourished Orientation/consciousness: patient oriented x3 HENMT Head: Yes normocephalic and Yes atraumatic Eyes General: appearance normal, both eyes and all related structures Pupils: Equal, round and reactive pupils present EOM: EOMs intact bilaterally Resp Effort & Inspection: normal respiratory effort Auscultation: clear to auscultation bilaterally Cardio Rate: regular rate Rhythm: regular rhythm Heart sounds: S1 normal heart sound present, S2 normal heart sound present, no gallops, no murmurs and no rubs GI Palpation (GI): No Abdominal aortic bruit present, Soft to palpation, nontender, No hepatosplenomegaly present and No Rebound tenderness present Auscultation: normal bowel sounds General: Yes no CVA tenderness Back/Spine/Pelvis Back: no CVA tenderness Cervical Spine: cervical ROM normal and No Cervical spine tenderness Thoracic/Lumbar Spine: thoraco-lumbar ROM normal, No pain with thoraco-lumbar ROM, No thoracic spinal tenderness and No lumbar spinal tenderness Extrem General: Yes normal to inspection, No edema and No calf tenderness Skin General: warm and dry. Normal skin color. Normal skin turgor Lesions: no lesions Rashes: no rashes Trauma: no lacerations or abrasions Wounds: no wounds Nails: normal Neuro General: patient oriented x3, gait normal and no focal neuro deficit Cranial nerves: Yes Equal, round and reactive pupils present Cognition (Neuro): normal cognition Gait exam (Neuro): Normal gait present Sensory Exam: No Sensory deficit (Neuro) Psych Appearance: grossly normal Affect: normal affect Attitude: cooperative Thought process: Normal thought process present Coding Level of Care Code Est Pt Level 3 (62810) Diagnoses Headache R51.9 Assessment & Plan Assessment & Plan (1) Headache: Code(s): R51.9 - Headache, unspecified Category: Medical Plan: 34-year-old male presents with complaints of headaches. He notes that he experienced significant headache for 6 days consecutive last week. He reports associated brain fog. He denies visual disturbances, dizziness, or other symptoms. He denies excessive caffeine intake. He has not experienced symptoms the last 2 days. He did not take any medication for his symptoms. No acute symptoms at this time. Normal physical and neuro exam. No focal deficit. May take Tylenol or ibuprofen as needed. Adequate hydration encouraged. Encouraged to check his blood pressure if experiencing severe headache and report readings above 140/90 to his PCP. Go to the ED with associated visual disturbances, dizziness, or chest pain. Follow-up with PCP as needed. Verbalized understanding and agreed with the plan.
[2024-07-12 15:43] VITALS: BP 127/65; PULSE 73; RESP 16; TEMP 36.8; O2SAT 98; BMI 38.5
== END 2024-07-12 16:13 | disposition home or self-care (01) ==
LOC: HO.HMCFM 15:36
PROVIDERS: PCP Family Medicine; Visit Provider Nurse Practitioner Family
DX: R51.9 Headache, unspecified (principal)

== ENCOUNTER → 2024-07-12 15:35 | Outpatient (BNVA) | payer OTHER, SELFPAY | PROVIDERS: PCP Family Medicine; Visit Provider Nurse Practitioner Family | DX: I10 Essential (primary) hypertension (principal); R51.9 Headache, unspecified | CPT/HCPCS: 99212 ==